=== PATIENT | female | born 1995 | race African-American/Black ===

== ENCOUNTER 2018-02-15 14:27 | Emergency (ER) | payer BC ==
--- OUTSIDE RECORDS SUMMARY | 2018-02-15 14:29 | XMS REPORT ---
:1995 Author Organization eClinicalWorks Care Team Providers Name Role Phone Kendal Aj Provider Role Unavailable Allergies, Adverse Reactions, Alerts Substance Reaction Event Type N.K.D.A. 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 type Assessment Abdominal pain, unspecified R10.9 Active abdominal location Problem Abdominal pain, unspecified R10.9 Active abdominal location Assessment Encounter for gynecological Z01.419 Active examination (general) (routine) without abnormal findings Assessment Encounter for screening for Z12.4 Active malignant neoplasm of cervix Assessment Encounter for contraceptive Z30.9 Active management, unspecified Medications No Known Medications Results Name Result Date Reference Range Unit Abnormality Flag URINALYSIS AUTO W/O SCOPE (42748) ----NIT NEG 20170728 ----URO 0.2 20170728 ----PROTEIN NEG 20170728 ----pH 6.5 20170728 ----BLO NEG 20170728 ----GLUCOSE NEG 20170728 ----MARGARITO NEG 20170728 ----BILIRUBIN NEG 20170728 ----KETONES NEG 20170728 ----SPECIFIC GRAVITY 1.020 20170728 Summary Purpose eClinicalWorks Submission
--- OUTSIDE RECORDS SUMMARY | 2018-02-15 14:29 | XMS REPORT ---
:1995 Author Organization eClinicalWorks Care Team Providers Name Role Phone Kendal Aj Provider Role Unavailable Allergies, Adverse Reactions, Alerts Substance Reaction Event Type N.K.D.A. Info Not Available Non Drug Allergy Problems Problem Type Condition Code Onset Dates Condition Status Assessment Well woman exam Z01.419 Active Assessment Encounter for other general Z30.09 Active counseling or advice on contraception Problem Glaucoma of left eye, unspecified H40.9 Active glaucoma type Medications No Known Medications Results No Known Results Summary Purpose eClinicalWorks Submission
--- OUTSIDE RECORDS SUMMARY | 2018-02-15 14:29 | XMS REPORT ---
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
--- OUTSIDE RECORDS SUMMARY | 2018-02-15 14:29 | XMS REPORT ---
:1995 Author Organization eClinicalWorks Care Team Providers Name Role Phone Kendal Aj Provider Role Unavailable Allergies, Adverse Reactions, Alerts Substance Reaction Event Type N.K.D.A. Info Not Available Non Drug Allergy Problems Problem Type Condition Code Onset Dates Condition Status Problem Mixed hyperlipidemia E78.2 Active Problem Abdominal pain, unspecified R10.9 Active abdominal location Problem Encounter for insertion of mirena Z30.430 Active IUD Problem Glaucoma of left eye, unspecified H40.9 Active glaucoma type Assessment Encounter for insertion of mirena Z30.430 Active IUD Medications No Known Medications Results Name Result Date Reference Range Unit Abnormality Flag TEST URINE ----RESULTS NEGATIVE 20170809 URINALYSIS AUTO W/O SCOPE (50666) ----PROTEIN NEG 20170809 ----pH 5.5 20170809 ----NIT NEG 20170809 ----MARGARITO NEG 20170809 ----URO 0.2 20170809 ----SPECIFIC GRAVITY 1.025 20170809 ----BLO 1+ 20170809 ----BILIRUBIN NEG 20170809 ----KETONES NEG 20170809 ----GLUCOSE NEG 20170809 Summary Purpose eClinicalWorks Submission
--- OUTSIDE RECORDS SUMMARY | 2018-02-15 14:29 | XMS REPORT ---
:1995 Author Organization eClinicalWorks Care Team Providers Name Role Phone Sekou Calvert Provider Role Unavailable Allergies, Adverse Reactions, Alerts Substance Reaction Event Type N.K.D.A. Info Not Available Non Drug Allergy Problems Problem Type Condition Code Onset Dates Condition Status Problem Mixed hyperlipidemia E78.2 Active Problem Abdominal pain, unspecified R10.9 Active abdominal location Problem Encounter for insertion of mirena Z30.430 Active IUD Assessment Glaucoma of left eye, unspecified H40.9 Active glaucoma type Problem Glaucoma of left eye, unspecified H40.9 Active glaucoma type Assessment Mixed hyperlipidemia E78.2 Active Medications No Known Medications Results No Known Results Summary Purpose [email or web address] Submission
--- OUTSIDE RECORDS SUMMARY | 2018-02-15 14:29 | XMS REPORT ---
:1995 Author Organization eClinicalWorks Care Team Providers Name Role Phone Kendal Aj Provider Role Unavailable Allergies, Adverse Reactions, Alerts Substance Reaction Event Type N.K.D.A. Info Not Available Non Drug Allergy Problems Problem Type Condition Code Onset Dates Condition Status Assessment Other specified bacterial agents as B96.89 Active the cause of diseases classified elsewhere Assessment Acute vaginitis N76.0 Active Problem Mixed hyperlipidemia E78.2 Active Problem Abdominal pain, unspecified R10.9 Active abdominal location Problem IUD (intrauterine device) in place Z97.5 Active Assessment IUD check up Z30.431 Active Assessment IUD (intrauterine device) in place Z97.5 Active Problem Glaucoma of left eye, unspecified H40.9 Active glaucoma type Medications Medication Code Code Instructions Start End Status Dosage System Date Date Mirena (52 MG) [facility] [place] 2[place] [id number] 20 MCG/24HR August 09, Active as directed Intrauterine 2018 Flagyl [facility] [place]NOTE 2] [id number] 500 MG Orally 12 September 08September Active 1 tablet 2017 Results No Known Results Summary Purpose eClinicalWorks Submission
--- OUTSIDE RECORDS SUMMARY | 2018-02-15 14:30 | XMS REPORT ---
:1995 Author Organization eClinicalWorks Care Team Providers Name Role Phone Kendal Aj Provider Role Unavailable Allergies, Adverse Reactions, Alerts Substance Reaction Event Type N.K.D.A. 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 Active prosthetic devices, implants and grafts, subsequent encounter Problem Mixed hyperlipidemia E78.2 Active Problem Abdominal pain, unspecified R10.9 Active abdominal location Problem IUD (intrauterine device) in place Z97.5 Active Assessment IUD check up Z30.431 Active Assessment IUD (intrauterine device) in place Z97.5 Active Problem Glaucoma of left eye, unspecified H40.9 Active glaucoma type Medications Medication Code Code Instructions Start End Status Dosage System Date Date Mirena (52 MG) [facility] [place] [id number] 20 MCG/24HR August 09, Active as directed Intrauterine 2017 Results No Known Results Summary Purpose eClinicalWorks Submission
--- OUTSIDE RECORDS SUMMARY | 2018-02-15 14:30 | XMS REPORT ---
:1995 Author Organization eClinicalWorks Care Team Providers Name Role Phone Kendal Aj Provider Role Unavailable Allergies, Adverse Reactions, Alerts Substance Reaction Event Type N.K.D.A. Info Not Available Non Drug Allergy Problems Problem Type Condition Code Onset Dates Condition Status Problem Mixed hyperlipidemia E78.2 Active Problem Abdominal pain, unspecified abdominal R10.9 Active location Problem IUD (intrauterine device) in place Z97.5 Active Assessment IUD (intrauterine device) in place Z97.5 Active Problem Glaucoma of left eye, unspecified H40.9 Active glaucoma type Medications Medication Code Code Instructions Start End Status Dosage System Date Date Mirena (52 MG) [facility] [id number] 20 MCG/24HR August 09, Active as directed Intrauterine 2017 Results No Known Results Summary Purpose eClinicalWorks Submission
--- OUTSIDE RECORDS SUMMARY | 2018-02-15 14:30 | XMS REPORT ---
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 [place] [id number] 20 MCG/24HR August 09, Active as directed Intrauterine 2017 Results No Known Results Summary Purpose eClinicalWorks Submission
--- NOTE | 2018-02-15 15:37 | EKG ---
Test Date: 2018-02-15 Test Time: 14:36:08 Electrical Appliance Servicer: EVITA MEASUREMENT RESULTS: Intervals: Rate: 62 MO: 138 QRSD: 74 QT: 394 QTc: 399 [place]: P: 77 MO: 138 QRS: 73 T: 57 INTERPRETIVE STATEMENTS: Normal sinus rhythm with sinus arrhythmia Normal ECG No previous ECG available for comparison Electronically Signed On 02-15-18 15:36:44 FREIGHT DELIVERY DRIVER by Enrique Swanson
[2018-02-15] MEDS ORDERED: KETOROLAC 30 MG/ML INJ ONE (16:01)
[2018-02-15] MEDS ORDERED: NA CHLORIDE 0.9% 500 ML ONE (16:11)
[2018-02-15 16:24] LABS: Absolute Monocytes 0.5 K/uL (0.1-1.3); Absolute Neutrophil 7.9 K/uL (1.8-8.0); Basophils % 0.9 % (0-1.3); Eosinophils % 0.5 % (0-4.4); Lymphocytes % 19.3 % (15.3-44.8); MCH 27.4 pg (27.0-35.0); MCV 79.7 fL (80-100); MPV 9.8 fL (7.6-11.3); RBC Red Blood Cell Count 4.89 M/uL (3.86-4.86)
[2018-02-15 16:37] LABS: RBC Red Blood Cell Count 4.9 M/uL (3.86-4.86)
[2018-02-15 16:53] LABS: ALT/SGPT 22 U/L (12-78); AST/SGOT 18 U/L (15-37); Albumin 4.2 g/dL (3.4-5.0); Alkaline Phosphatase 47 U/L (45-117); BUN Blood Urea Nitrogen 7 mg/dL (7-18); Bicarbonate 24 mmol/L (21-32); Bilirubin Direct 0.1 mg/dL (0-0.2); Bilirubin Total 0.5 mg/dL (0.2-1.0); Glucose Level 90 mg/dL (74-106); Magnesium 2.1 mg/dL (1.8-2.4); Potassium 3.4 mmol/L (3.5-5.1); Protein, Total 7.6 g/dL (6.4-8.2); Sodium Level 137 mmol/L (136-145); Troponin (Emerg Dept Use Only) < 0.02 ng/mL (0.0-0.045)
[2018-02-15] MEDS ORDERED: POTASSIUM 25 MEQ EFFERV TAB ONE (17:19)
[2018-02-15 17:42] LABS: Protime INR 1.18
--- NOTE | 2018-02-15 18:24 | ER ---
Nurse's Notes [facility] Name: Maribell Parada Age: 22 yrs Sex: Female : 1995 Arrival Date: 02/15/2018 Time: 14:28 Bed 26 Private MD: Diagnosis: Other chest pain Presentation: 02/15 14:30 Presenting complaint: Patient states: yesterday i had bad chest pain, then today it tw2 started happening again and i am having shortness of breath. Transition of care: patient was not received from another setting of care. Onset of symptoms was February 15, 2018. Risk Assessment: Do you want to hurt yourself or someone else? Patient reports no desire to harm self or others. Initial Sepsis Screen: Does the patient meet any 2 criteria? No. Patient's initial sepsis screen is negative. Does the patient have a suspected source of infection? No. Patient's initial sepsis screen is negative. Care prior to arrival: None. 14:30 Method Of Arrival: Ambulatory tw2 14:30 Acuity: VINAY 3 tw2 MANAGER HAIR: 14:31 LMP 02/15/2018 tw2 Historical: - Allergies: 14:33 No Known Allergies; tw2 - Home Meds: 14:33 None [Active]; tw2 - PMHx: 14:33 Sickle Cell Trait Only; tw2 - PSHx: 14:33 None; tw2 - Immunization history:: Adult Immunizations up to date. - Social history:: Smoking status: Patient uses tobacco products, "i vape daily but like 2-3 puffs". - Ebola Screening: : Patient denies travel to an Ebola-affected area in the 21 days before illness onset. Screenin:19 Abuse screen: Denies threats or abuse. Denies injuries from another. Nutritional mg2 screening: No deficits noted. Tuberculosis screening: No symptoms or risk factors identified. Fall Risk IV access (20 points). Assessment: 16:19 General: Appears in no apparent distress. comfortable, Behavior is calm, cooperative. mg2 Pain: Complains of pain in chest Pain radiates to back Pain currently is 3 out of 10 on a pain scale. Quality of pain is described as aching, Pain began gradually, 1 day ago. Is intermittent. Neuro: Level of Consciousness is awake, alert, obeys commands, Oriented to person, place, time, situation. Cardiovascular: Capillary refill < 3 seconds Patient's skin is warm and dry. Respiratory: Airway is patent Respiratory effort is even, unlabored, Respiratory pattern is regular, symmetrical. GI: No signs and/or symptoms were reported involving the gastrointestinal system. : Urine is clear. EENT: No signs and/or symptoms were reported regarding the EENT system. Derm: Skin is intact, is healthy with good turgor, Skin is pink, warm \\T\\ dry. normal. Musculoskeletal: No signs and/or symptoms reported regarding the musculoskeletal system. 17:15 Reassessment: Patient appears in no apparent distress at this time. No changes from aj1 previously documented assessment. Patient and/or family updated on plan of care and expected duration. Pain level reassessed. Patient is alert, oriented x 3, equal unlabored respirations, skin warm/dry/pink. 18:09 Reassessment: Patient appears in no apparent distress at this time. No changes from aj1 previously documented assessment. Patient and/or family updated on plan of care and expected duration. Pain level reassessed. Patient is alert, oriented x 3, equal unlabored respirations, skin warm/dry/pink. Vital Signs: 14:31 BP 122 / 80; Pulse 65; Resp 17; Temp 99.0(O); Pulse Ox 100% on R/A; Pain 2/10; tw2 17:25 BP 129 / 77; Pulse 60; Resp 18; Pulse Ox 100% on R/A; Pain 0/10; mg2 18:09 BP 109 / 80; Pulse 63; Resp 18; Pulse Ox 100% on R/A; aj1 14:31 when it hits its a 7, but right now its a 2 tw2 ED Course: 14:28 Patient arrived in ED. as 14:31 Triage completed. tw2 14:33 Arm band placed on. tw2 14:33 Patient maintains SpO2 saturation greater than 95% on room air. tw2 15:33 Uzma Landaverde, BRENDA is Primary Nurse. aj1 15:34 Pancho Carson PA is PHCP. cp 15:34 Munir Rivas MD is Attending Physician. cp 16:08 EKG done, by dialysis chief equipment technician. reviewed by Munir Rivas MD. dt2 16:19 No provider procedures requiring assistance completed. Inserted saline lock: 20 gauge mg2 in right antecubital area, using aseptic technique. Blood collected. 16:21 Patient has correct armband on for positive identification. Pulse ox on. NIBP on. mg2 18:03 X-ray completed. Patient tolerated procedure well. Patient moved back from radiology. ml 18:46 IV discontinued, intact, bleeding controlled, No redness/swelling at site. Pressure mg2 dressing applied. Administered Medications: 16:18 Drug: NS 0.9% 500 ml Route: IV; Rate: bolus; Site: right antecubital; mg2 17:06 Follow up: Response: No adverse reaction; IV Status: Completed infusion mg2 16:18 Drug: TORadol 15 mg Route: IVP; Site: right antecubital; mg2 17:06 Follow up: Response: No adverse reaction; Marked relief of symptoms mg2 17:17 Drug: Potassium Effervescent Tablet 25 mEq Route: PO; mg2 18:38 Follow up: Response: No adverse reaction mg2 Outcome: 18:23 Discharge ordered by MD. cp 18:46 Discharged to home ambulatory, with family. mg2 18:46 Condition: stable 18:46 Discharge instructions given to patient, family, Instructed on discharge instructions, follow up and referral plans. medication usage, Demonstrated understanding of instructions, follow-up care, medications, Prescriptions given X 2. 18:46 Patient left the ED. mg2 Signatures: Uzma Landaverde, RN RN aj1 Felisha Shearer Melissa ml Page, Corey, PA PA cp Crystal Workman RN RN tw2 Cesar Moreno RN RN mg2 Inge Bhakta dt2
--- NOTE | 2018-02-15 18:24 | EDPHYS ---
Physician Documentation [facility] Name: Maribell Parada Age: 22 yrs Sex: Female : 1995 Arrival Date: 02/15/2018 Time: 14:28 Bed 26 Private MD: ED Physician Munir Rivas HPI: 02/15 15:50 This 22 yrs old Black Female presents to ER via Ambulatory with complaints of Chest cp Pain, Joint Pain. 15:50 The patient or guardian reports chest pain that is located primarily in the substernal cp area, anterior chest wall, left. 15:50 Associated signs and symptoms: Pertinent positives: shortness of breath, Pertinent cp negatives: cough, headache, lower extremity pain, lower extremity swelling, palpitations, syncope, vomiting. The chest pain is described as sharp. Duration: The patient or guardian reports multiple episodes, that are intermittent. Modifying factors: The symptoms are alleviated by nothing. the symptoms are aggravated by nothing. Severity of pain: in the emergency department the pain has improved markedly. PROBATION AGENT: 14:31 LMP 02/15/2018 tw2 Historical: - Allergies: 14:33 No Known Allergies; tw2 - Home Meds: 14:33 None [Active]; tw2 - PMHx: 14:33 Sickle Cell Trait Only; tw2 - PSHx: 14:33 None; tw2 - Immunization history:: Adult Immunizations up to date. - Social history:: Smoking status: Patient uses tobacco products, "i vape daily but like 2-3 puffs". - Ebola Screening: : Patient denies travel to an Ebola-affected area in the 21 days before illness onset. ROS: 15:55 Constitutional: Negative for body aches, chills, fever, poor PO intake. cp 15:55 Eyes: Negative for injury, pain, redness, and discharge. cp 15:55 ENT: Negative for drainage from ear(s), ear pain, sore throat, difficulty swallowing, difficulty handling secretions. 15:55 Cardiovascular: Negative for chest pain, edema, palpitations. 15:55 Respiratory: Negative for cough, shortness of breath, wheezing. 15:55 Abdomen/GI: Negative for abdominal pain, nausea, vomiting, and diarrhea, constipation, black/tarry stool, rectal bleeding. 15:55 : Negative for urinary symptoms. 15:55 Skin: Negative for cellulitis, rash. 15:55 Neuro: Negative for altered mental status, headache, weakness. 15:55 All other systems are negative. Exam: 15:40 ECG was reviewed by the Attending Physician. cp 16:00 Constitutional: The patient appears in no acute distress, alert, awake, cp non-diaphoretic, non-toxic, well developed, well nourished. 16:00 Head/Face: Normocephalic, atraumatic. cp 16:00 Eyes: Periorbital structures: appear normal, Conjunctiva: normal, no exudate, no injection, Sclera: no appreciated abnormality, Lids and lashes: appear normal, bilaterally. 16:00 ENT: External ear(s): are unremarkable, Ear canal(s): are normal, clear, TM's: are normal, no evidence of bulging, no erythema, dullness, bilaterally, Nose: is normal, Mouth: Lips: moist, Oral mucosa: pink and intact, moist, Posterior pharynx: is normal, airway is patent, no erythema, no exudate, Voice: is normal. 16:00 Neck: ROM/movement: is normal, is supple, without pain, no range of motions limitations, no nuchal rigidity. 16:00 Chest/axilla: Inspection: normal, Palpation: crepitus, is not appreciated, tenderness, that is mild, of the anterior aspect of left upper chest and mid-sternal area. 16:00 Cardiovascular: Rate: normal, Rhythm: regular, Heart sounds: murmur, not appreciated, Edema: is not appreciated, JVD: is not appreciated. 16:00 Respiratory: the patient does not display signs of respiratory distress, Respirations: normal, no use of accessory muscles, no retractions, no splinting, no tachypnea, labored breathing, is not present, Breath sounds: are clear throughout, no decreased breath sounds, no stridor, no wheezing. 16:00 Abdomen/GI: Inspection: abdomen appears normal, Bowel sounds: active, all quadrants, Palpation: abdomen is soft and non-tender, in all quadrants, rebound tenderness, is not appreciated, voluntary guarding, is not appreciated, involuntary guarding, is not appreciated. 16:00 Back: pain, is absent, ROM is normal. 16:00 Skin: cellulitis, is not appreciated, no rash present. 16:00 Neuro: Orientation: to person, place \\T\\ time. Mentation: is normal, Cerebellar function: is grossly normal, Motor: moves all fours, strength is normal, Sensation: is normal. 16:06 ECG was reviewed by the Attending Physician. cp Vital Signs: 14:31 BP 122 / 80; Pulse 65; Resp 17; Temp 99.0(O); Pulse Ox 100% on R/A; Pain 2/10; tw2 17:25 BP 129 / 77; Pulse 60; Resp 18; Pulse Ox 100% on R/A; Pain 0/10; mg2 18:09 BP 109 / 80; Pulse 63; Resp 18; Pulse Ox 100% on R/A; aj1 14:31 when it hits its a 7, but right now its a 2 tw2 MDM: 15:34 Patient medically screened. cp 16:00 Differential diagnosis: acute pericarditis, chest wall pain, costochondritis, cp esophagitis, pericarditis, pleurisy, pneumonia, pneumothorax, pulmonary embolus. 18:20 Data reviewed: vital signs, nurses notes, lab test result(s), EKG, radiologic studies, cp plain films. 18:20 Test interpretation: by ED physician or midlevel provider: ECG, plain radiologic cp studies. Counseling: I had a detailed discussion with the patient and/or guardian regarding: the historical points, exam findings, and any diagnostic results supporting the discharge/admit diagnosis, lab results, radiology results, the need for outpatient follow up, a family practitioner, to return to the emergency department if symptoms worsen or persist or if there are any questions or concerns that arise at home. 02/15 15:47 Order name: Basic Metabolic Panel cp 02/15 15:47 Order name: CBC with Diff cp 02/15 15:47 Order name: LFT's cp 02/15 15:47 Order name: Magnesium cp 02/15 15:47 Order name: PT-INR cp 02/15 15:47 Order name: Troponin (emerg Dept Use Only) cp 02/15 15:47 Order name: D-Dimer cp 02/15 15:49 Order name: Retic Count cp 02/15 16:31 Order name: CBC with Automated Diff; Complete Time: 17:01 EDMS 02/15 17:01 Interpretation: Normal except: RBC 4.89; MCV 79.7; KULDEEP% 74.3. cp 02/15 16:40 Order name: Retic Count; Complete Time: 17:01 EDMS 02/15 17:01 Interpretation: Abnormal: RBC 4.90. 12/ 16:54 Order name: Basic Metabolic Panel; Complete Time: 17:01 EDMS 02/15 17:01 Interpretation: Normal except: K 3.4. / 16:54 Order name: Liver (Hepatic) Function; Complete Time: 17:01 EDMS 02/15 16:54 Order name: Troponin (Emerg Dept Use Only); Complete Time: 17:01 EDMS 02/15 17:18 Interpretation: Within normal limits: TROPED < 0.02. / 16:54 Order name: Magnesium; Complete Time: 17:01 EDMS 02/15 17:19 Interpretation: MG 2.1; Reviewed. 02/15 15:35 Order name: EKG; Complete Time: 15:36 02/15 15:35 Order name: EKG - Nurse/Tech; Complete Time: 15:47 02/15 15:47 Order name: Cardiac monitoring; Complete Time: 16:19 02/15 15:47 Order name: IV Saline Lock; Complete Time: 16:19 02/15 15:47 Order name: Labs collected and sent; Complete Time: 16:19 02/15 15:47 Order name: O2 Per Protocol; Complete Time: 16:19 02/15 15:47 Order name: O2 Sat Monitoring; Complete Time: 16:19 02/15 15:47 Order name: Urine Dipstick-Ancillary (obtain specimen); Complete Time: 16:18 02/15 15:47 Order name: Urine Test (obtain specimen); Complete Time: 16:18 02/15 17:44 Order name: Protime (+INR); Complete Time: 17:52 EDMS 02/15 17:52 Interpretation: Normal except: PT 14.0. / 17:44 Order name: D-Dimer; Complete Time: 17:52 EDMS 02/15 17:53 Interpretation: D-DIMER < 215; Reviewed. 02/15 17:53 Order name: XRAY Chest Pa And Lat (2 Views) cp EC:40 Rate is 62 beats/min. Rhythm is regular. IA interval is normal. QRS interval is normal. cp QT interval is normal. T waves are Flattened in lead aVL. Interpreted by me. Reviewed by me. 16:06 Rate is 61 beats/min. Rhythm is regular. IA interval is normal. QRS interval is normal. cp QT interval is normal. T waves are Flattened in lead aVL. Interpreted by me. Reviewed by me. Administered Medications: 16:18 Drug: NS 0.9% 500 ml Route: IV; Rate: bolus; Site: right antecubital; mg2 17:06 Follow up: Response: No adverse reaction; IV Status: Completed infusion mg2 16:18 Drug: TORadol 15 mg Route: IVP; Site: right antecubital; mg2 17:06 Follow up: Response: No adverse reaction; Marked relief of symptoms mg2 17:17 Drug: Potassium Effervescent Tablet 25 mEq Route: PO; mg2 18:38 Follow up: Response: No adverse reaction mg2 Disposition: 02/16 07:43 Co-signature as Attending Physician, Munir Rivas MD. rn Disposition: 02/15/18 18:23 Discharged to Home. Impression: Other chest pain. - Condition is Stable. - Discharge Instructions: Nonspecific Chest Pain. - Prescriptions for Anaprox 275 mg Oral Tablet - take 1 tablet by ORAL route every 8 hours As needed; 30 tablet. Pepcid 20 mg Oral Tablet - take 1 tablet by ORAL route every 12 hours for 10 days; 20 tablet. - Medication Reconciliation Form, Thank You Letter, Antibiotic Education, Prescription Opioid Use form. - Follow up: Private Physician; When: 2 - 3 days; Reason: Recheck today's complaints. - Problem is new. - Symptoms have improved. Signatures: Dispatcher [employer] EDMS Munir Rivas MD MD rn Page, Corey, PA PA cp Crystal Workman RN RN tw2 Cesar Moreno RN RN mg2 Corrections: (The following items were deleted from the chart) 12 18:46 18:23 02/15/2018 18:23 Discharged to Home. Impression: Other chest pain. Condition is mg2 Stable. Forms are Medication Reconciliation Form, Thank You Letter, Antibiotic Education, Prescription Opioid Use. Follow up: Private Physician; When: 2 - 3 days; Reason: Recheck today's complaints. Problem is new. Symptoms have improved. cp
--- NOTE | 2018-02-15 19:09 | RAD REPORT ---
EXAM DESCRIPTION: Jose Elias Rosales (2 Views)02/15/2018 6:08 pm CLINICAL HISTORY: Chest pain COMPARISON: 2017 FINDINGS: The lungs appear clear of acute infiltrate. The heart is normal size IMPRESSION: No acute abnormalities displayed
--- NOTE | 2018-02-15 22:19 | EKG ---
Test Date: 2018-02-15 Test Time: 16:03:41 Carbon Accountant: CHRIS MEASUREMENT RESULTS: Intervals: Rate: 61 SC: 140 QRSD: 74 QT: 404 QTc: 406 [place]: P: 71 SC: 140 QRS: 70 T: 57 INTERPRETIVE STATEMENTS: Normal sinus rhythm Normal ECG Compared to ECG 02/15/2018 14:36:08 Sinus arrhythmia no longer present Electronically Signed On 02-15-18 22:18:30 GRADES 9 12 TUTOR by Enrique Swasnon
== END 2018-02-15 18:46 | disposition home or self-care (01) ==
LOC: ER 14:27
DX: R07.89 Other chest pain (principal); F17.290 Nicotine dependence, other tobacco product, uncomplicated
CPT/HCPCS: 36415; 71046; 80048; 80076; 83735; 84484; 85025; 85044; 85379; 85610; 93005; 96361; 96374; 99284

== ENCOUNTER 2018-04-03 20:50 | Emergency (ER) | payer BC ==
--- OUTSIDE RECORDS SUMMARY | 2018-04-03 20:52 | XMS REPORT ---
[...] Medications Results No Known Results Summary Purpose [employer] Submission
--- OUTSIDE RECORDS SUMMARY | 2018-04-03 20:52 | XMS REPORT ---
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
--- OUTSIDE RECORDS SUMMARY | 2018-04-03 20:52 | XMS REPORT ---
:1995 Author Organization eClinicalWorks Care Team Providers Name Role Phone Kendal jA Provider Role Unavailable Allergies, Adverse Reactions, Alerts [...]
--- OUTSIDE RECORDS SUMMARY | 2018-04-03 20:52 | XMS REPORT ---
[...] ----RESULTS NEGATIVE 20170809 URINALYSIS AUTO W/O SCOPE (50645) ----PROTEIN NEG 20170809 ----pH 5.5 20170809 ----NIT NEG 20170809 ----MARGARITO NEG 20170809 ----URO 0.2 20170809 ----SPECIFIC GRAVITY 1.025 20170809 ----BLO 1+ 20170809 ----BILIRUBIN NEG 20170809 ----KETONES NEG 20170809 ----GLUCOSE NEG 20170809 Summary Purpose eClinicalWorks Submission
--- OUTSIDE RECORDS SUMMARY | 2018-04-03 20:52 | XMS REPORT ---
[...] Unit Abnormality Flag URINALYSIS AUTO W/O SCOPE (16518) ----NIT NEG 20170728 ----URO 0.2 20170728 ----PROTEIN NEG 20170728 ----pH 6.5 20170728 ----BLO NEG 20170728 ----GLUCOSE NEG 20170728 ----MARGARITO NEG 20170728 ----BILIRUBIN NEG 20170728 ----KETONES NEG 20170728 ----SPECIFIC GRAVITY 1.020 20170728 Summary Purpose eClinicalWorks Submission
--- OUTSIDE RECORDS SUMMARY | 2018-04-03 20:52 | XMS REPORT ---
[...] Dosage System Date Date Mirena (52 MG) [facility] [id number] 20 MCG/24HR August 09, Active as directed Intrauterine 2017 Results No Known Results Summary Purpose eClinicalWorks Submission
--- OUTSIDE RECORDS SUMMARY | 2018-04-03 20:52 | XMS REPORT ---
[...] Dosage System Date Date Mirena (52 MG) [facility] [id number] 20 MCG/24HR August 09, Active as directed Intrauterine 2018 Flagyl [facility] [id number] 500 MG Orally 12 September 08September Active 1 tablet 2017 Results No Known Results Summary Purpose eClinicalWorks Submission
--- OUTSIDE RECORDS SUMMARY | 2018-04-03 20:52 | XMS REPORT ---
[...] Dosage System Date Date Mirena (52 MG) [facility] [id number] 20 MCG/24HR August 09, Active as directed Intrauterine 2017 Results No Known Results Summary Purpose eClinicalWorks Submission
--- OUTSIDE RECORDS SUMMARY | 2018-04-03 20:52 | XMS REPORT ---
[...] Dosage System Date Date Mirena (52 MG) [facility] [id number] 20 MCG/24HR August 09, Active as directed Intrauterine 2017 Results No Known Results Summary Purpose eClinicalWorks Submission
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
== END 2018-04-03 22:19 | disposition home or self-care (01) ==
LOC: ER 20:50
DX: T23.202A Burn of second degree of left hand, unspecified site, initial encounter (principal); X10.2XXA Contact with fats and cooking oils, initial encounter; Y93.9 Activity, unspecified; Y92.9 Unspecified place or not applicable; Z72.0 Tobacco use; D57.3 Sickle-cell trait
CPT/HCPCS: 99283

== ENCOUNTER 2018-05-08 14:55 | Emergency (ER) | payer BC ==
--- OUTSIDE RECORDS SUMMARY | 2018-05-08 15:34 | XMS REPORT ---
[...] ----RESULTS NEGATIVE 20170809 URINALYSIS AUTO W/O SCOPE (94109) ----PROTEIN NEG 20170809 ----pH 5.5 20170809 ----NIT NEG 20170809 ----MARGARITO NEG 20170809 ----URO 0.2 20170809 ----SPECIFIC GRAVITY 1.025 20170809 ----BLO 1+ 20170809 ----BILIRUBIN NEG 20170809 ----KETONES NEG 20170809 ----GLUCOSE NEG 20170809 Summary Purpose eClinicalWorks Submission
--- OUTSIDE RECORDS SUMMARY | 2018-05-08 15:34 | XMS REPORT ---
[...] Dosage System Date Date Mirena (52 MG) [facility] [id number] 20 MCG/24HR August 09, Active as directed Intrauterine 2017 Results No Known Results Summary Purpose eClinicalWorks Submission
--- OUTSIDE RECORDS SUMMARY | 2018-05-08 15:34 | XMS REPORT ---
[...] System Date Date Mirena (52 MG) [facility] [id number] 20 MCG/24HR August 09, Active as directed Intrauterine 2017 Results No Known Results Summary Purpose eClinicalWorks Submission
--- OUTSIDE RECORDS SUMMARY | 2018-05-08 15:34 | XMS REPORT ---
[...] System Date Date Mirena (52 MG) [facility] [id number] 20 MCG/24HR August 09, Active as directed Intrauterine 2018 Results No Known Results Summary Purpose eClinicalWorks Submission
--- OUTSIDE RECORDS SUMMARY | 2018-05-08 15:34 | XMS REPORT ---
:1995 [facility] Address [address] [place] [address] Dr. [address] [place] [id number] Care Team Providers Name Role Phone Unavailable Unavailable Unavailable Problems This patient has no known problems. Allergies, Adverse Reactions, Alerts This patient has no known allergies or adverse reactions. Medications This patient has no known medications.
--- OUTSIDE RECORDS SUMMARY | 2018-05-08 15:34 | XMS REPORT ---
[...] Dosage System Date Date Mirena (52 MG) [facility] [id number] 20 MCG/24HR August 09, Active as directed Intrauterine 2018 Flagyl [facility] [id number] 500 MG Orally 12 September 08September Active 1 tablet 2017 Results No Known Results Summary Purpose eClinicalWorks Submission
--- OUTSIDE RECORDS SUMMARY | 2018-05-08 15:34 | XMS REPORT ---
[...] Medications Results No Known Results Summary Purpose [employer] Submission
--- OUTSIDE RECORDS SUMMARY | 2018-05-08 15:34 | XMS REPORT ---
[...] Dosage System Date Date Mirena (52 MG) [facility] [id number] 20 MCG/24HR August 09, Active as directed Intrauterine 2017 Results No Known Results Summary Purpose eClinicalWorks Submission
--- OUTSIDE RECORDS SUMMARY | 2018-05-08 15:34 | XMS REPORT ---
[...] Unit Abnormality Flag URINALYSIS AUTO W/O SCOPE (71899) ----NIT NEG 20170728 ----URO 0.2 20170728 ----PROTEIN NEG 20170728 ----pH 6.5 20170728 ----BLO NEG 20170728 ----GLUCOSE NEG 20170728 ----MARGARITO NEG 20170728 ----BILIRUBIN NEG 20170728 ----KETONES NEG 20170728 ----SPECIFIC GRAVITY 1.020 20170728 Summary Purpose eClinicalWorks Submission
--- NOTE | 2018-05-08 16:04 | ER ---
Nurse's Notes [facility] Name: Maribell Parada Age: 22 yrs Sex: Female : 1995 Arrival Date: 05/08/2018 Time: 14:58 Bed 28 Private MD: Sekou Calvert Diagnosis: Acute upper respiratory infection, unspecified Presentation: 05/08 15:04 Presenting complaint: Patient states: "I started having pain to the left side of my aa5 chest and my left arm on Tuesday morning". Pt reports chest pain is episodic that last a few minutes. Pt denies SOB. Transition of care: patient was not received from another setting of care. Onset of symptoms was April 2018. Risk Assessment: Do you want to hurt yourself or someone else? Patient reports no desire to harm self or others. Initial Sepsis Screen: Does the patient meet any 2 criteria? No. Patient's initial sepsis screen is negative. Does the patient have a suspected source of infection? No. Patient's initial sepsis screen is negative. Care prior to arrival: None. 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 - Social history:: Smoking status: Patient uses tobacco products, denies chronic smoking, but will smoke occasionally, Patient/guardian denies using alcohol, street drugs, The patient lives with family. - Ebola Screening: : No symptoms or risks identified at this time. - Family history:: not pertinent. Screenin:59 Abuse screen: Denies threats or abuse. Nutritional screening: No deficits noted. tl3 Tuberculosis screening: No symptoms or risk factors identified. Fall Risk None identified. Assessment: 15:59 General: Appears in no apparent distress. comfortable, slender, well groomed, well tl3 developed, well nourished, Behavior is calm, cooperative, appropriate for age. Pain: Complains of pain in chest and left arm, up lef side of neck. Pain: Pain began 2-3 days ago. Neuro: Level of Consciousness is awake, alert, obeys commands, Oriented to person, place, time, situation, Appropriate for age. Cardiovascular: Heart tones S1 S2 present Patient's skin is warm and dry. Respiratory: Airway is patent Respiratory effort is even, unlabored, Respiratory pattern is regular, symmetrical. GI: No signs and/or symptoms were reported involving the gastrointestinal system. : No signs and/or symptoms were reported regarding the genitourinary system. 16:18 Reassessment: Patient appears in no apparent distress at this time. No changes from tl3 previously documented assessment. Patient and/or family updated on plan of care and expected duration. Pain level reassessed. Patient is alert, oriented x 3, equal unlabored respirations, skin warm/dry/pink. Vital Signs: 15:05 BP 135 / 89; Pulse 80; Resp 18 S; Temp 98.2(TE); Pulse Ox 98% on R/A; Weight 48.08 kg aa5 (R); Height 4 ft. 9 in. (144.78 cm) (R); Pain 0/10; 15:59 BP 113 / 74; Pulse 68; Resp 18; Pulse Ox 97% ; tl3 16:18 BP 100 / 64; Pulse 79; Resp 18; Pulse Ox 100% on R/A; tl3 15:05 Body Mass Index 22.94 (48.08 kg, 144.78 cm) aa5 ED Course: 14:58 Patient arrived in ED. mr 14:58 Sekou Calvert DO is Private Physician. mr 15:05 Triage completed. aa5 15:05 Arm band placed on. aa5 15:15 Franchesca Guthrie MD is Attending Physician. ma2 15:47 EKG done, by metallurgical engineering technician. reviewed by Franchesca Guthrie MD. sm3 15:52 July Ramos, BRENDA is Primary Nurse. tl3 15:59 Patient has correct armband on for positive identification. Pulse ox on. NIBP on. tl3 15:59 No provider procedures requiring assistance completed. Patient maintains SpO2 tl3 saturation greater than 95% on room air. 16:18 Patient did not have IV access during this emergency room visit. tl3 Administered Medications: No medications were administered Outcome: 16:04 Discharge ordered by . ma2 16:18 Discharged to home ambulatory. tl3 16:18 Condition: stable 16:18 Discharge instructions given to patient, family, Instructed on discharge instructions, follow up and referral plans. medication usage, Demonstrated understanding of follow-up care, medications, Prescriptions given X 4. 16:20 Patient left the ED. tl3 Signatures: Elizabeth Escobar TorresLela, RN RN aa5 Franchesca Guthrie MD MD ma2 July Ramos RN RN tl3 Claudia Gallardo 3
--- NOTE | 2018-05-08 16:04 | EDPHYS ---
Physician Documentation [facility] Name: Maribell Parada Age: 22 yrs Sex: Female : 1995 Arrival Date: 05/08/2018 Time: 14:58 Bed 28 Private MD: Enrike [facility] ED Physician Franchesca Guthrie HPI: 05/08 15:59 This 22 yrs old Black Female presents to ER via Ambulatory with complaints of Chest ma2 Pain. 15:59 This 22 yrs old Black Female presents to ER via Ambulatory with complaints of Chest ma2 Pain. 15:59 The patient or guardian reports chest pain that is located primarily in the substernal ma2 area. The pain does not radiate. Associated signs and symptoms: Pertinent negatives: abdominal pain, dizziness, lower extremity swelling, lightheadedness, syncope. The chest pain is described as burning. Duration: The patient or guardian reports multiple episodes. Severity of pain: At its worst the pain was mild in the emergency department the pain has resolved. The patient has not experienced similar symptoms in the past. patient has chest wall pain that resolved and cough . 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 - Social history:: Smoking status: Patient uses tobacco products, denies chronic smoking, but will smoke occasionally, Patient/guardian denies using alcohol, street drugs, The patient lives with family. - Ebola Screening: : No symptoms or risks identified at this time. - Family history:: not pertinent. ROS: 15:59 Constitutional: Negative for fever, chills, and weight loss. ma2 15:59 Cardiovascular: Negative for chest pain, palpitations, and edema, Respiratory: Negative for shortness of breath, cough, wheezing, and pleuritic chest pain, Abdomen/GI: Negative for abdominal pain, nausea, diarrhea, and constipation. 15:59 ENT: Positive for rhinorrhea, Negative for ear pain, Teeth pain tinnitus, rhinorrhea. 15:59 All other systems are negative. Exam: 15:59 Constitutional: This is a well developed, well nourished patient who is awake, alert, ma2 and in no acute distress. Chest/axilla: Normal chest wall appearance and motion. Nontender with no deformity. No lesions are appreciated. Cardiovascular: Regular rate and rhythm with a normal S1 and S2. No gallops, murmurs, or rubs. Normal PMI, no JVD. No pulse deficits. Respiratory: Lungs have equal breath sounds bilaterally, clear to auscultation and percussion. No rales, rhonchi or wheezes noted. No increased work of breathing, no retractions or nasal flaring. Abdomen/GI: Soft, non-tender, with normal bowel sounds. No distension or tympany. No guarding or rebound. No evidence of tenderness throughout. 15:59 MS/ Extremity: Pulses equal, no cyanosis. Neurovascular intact. Full, normal range of motion. Neuro: Awake and alert, GCS 15, oriented to person, place, time, and situation. Cranial nerves II-XII grossly intact. Motor strength 5/5 in all extremities. Sensory grossly intact. Cerebellar exam normal. Normal gait. 15:59 ENT: TM's: are normal, Nose: is normal, Posterior pharynx: Airway: normal, no evidence of obstruction, swelling, that is mild, erythema, that is moderate, peritonsillar mass, is not appreciated. Vital Signs: 15:05 BP 135 / 89; Pulse 80; Resp 18 S; Temp 98.2(TE); Pulse Ox 98% on R/A; Weight 48.08 kg aa5 (R); Height 4 ft. 9 in. (144.78 cm) (R); Pain 0/10; 15:59 BP 113 / 74; Pulse 68; Resp 18; Pulse Ox 97% ; tl3 16:18 BP 100 / 64; Pulse 79; Resp 18; Pulse Ox 100% on R/A; tl3 15:05 Body Mass Index 22.94 (48.08 kg, 144.78 cm) aa5 MDM: 15:15 Patient medically screened. ma2 15:59 Differential diagnosis: chest wall pain, costochondritis, gastritis. ROSALES Risk Score: ma2 not applicable. Data reviewed: vital signs, nurses notes. Counseling: I had a detailed discussion with the patient and/or guardian regarding: the historical points, exam findings, and any diagnostic results supporting the discharge/admit diagnosis, the presence of at least one elevated blood pressure reading (>120/80) during this emergency department visit, the need for outpatient follow up. 05/08 15:15 Order name: EKG - Nurse/Tech; Complete Time: 15:43 ma2 Administered Medications: No medications were administered Disposition: 05/08/18 16:04 Discharged to Home. Impression: Acute upper respiratory infection, unspecified. - Condition is Stable. - Discharge Instructions: Viral Respiratory Infection, [id number]. - Prescriptions for Maalox Advanced 200- 200-20 mg/5 mL Oral suspension - take 10 milliliter by ORAL route 3 times per day; 300 milliliter. Tylenol- Codeine #3 300-30 mg Oral Tablet - take 2 tablet by ORAL route every 6 hours As needed; 30 tablet. Zithromax Z- Quinten 250 mg Oral Tablet - take 1 tablet by ORAL route as directed for 5 days Day 1 - take two (2) tablets one time. Day 2, 3, 4 , 5 take one (1) tablet once daily.; 6 tablet. Pepcid 20 mg Oral Tablet - take 1 tablet by ORAL route once daily for 10 days; 10 tablet. - Medication Reconciliation Form, Thank You Letter, Antibiotic Education, Prescription Opioid Use form. - Follow up: Private Physician; When: Tomorrow; Reason: Continuance of care. Signatures: Lela Torres, RN RN aa5 Franchesca Guthrie MD MD ma2 July Ramos RN RN tl3 Corrections: (The following items were deleted from the chart) 16:20 16:04 05/08/2018 16:04 Discharged to Home. Impression: Acute upper respiratory tl3 infection, unspecified. Condition is Stable. Forms are Medication Reconciliation Form, Thank You Letter, Antibiotic Education, Prescription Opioid Use. Follow up: Private Physician; When: Tomorrow; Reason: Continuance of care. ma2
--- NOTE | 2018-05-08 18:37 | EKG ---
Test Date: 2018-05-08 Test Time: 15:36:19 Quality Improvement Analyst: JANINE MEASUREMENT RESULTS: Intervals: Rate: 63 OH: 130 QRSD: 82 QT: 382 QTc: 390 [place]: P: 84 OH: 130 QRS: 78 T: 71 INTERPRETIVE STATEMENTS: Normal sinus rhythm with sinus arrhythmia Normal ECG Compared to ECG 02/15/2018 16:03:41 No significant changes Electronically Signed On 05-08-18 18:35:36 INTRAMURAL DIRECTOR by Enrique Swanson
== END 2018-05-08 16:20 | disposition home or self-care (01) ==
LOC: ER 14:55
DX: J06.9 Acute upper respiratory infection, unspecified (principal); D57.3 Sickle-cell trait; Z72.0 Tobacco use
CPT/HCPCS: 93005; 99284